=== PATIENT | female | born 1980 | race American Indian/Alaskan Native ===

== ENCOUNTER 2019-07-08 05:25 | Observation (INO) | payer MEDICAID ==
[2019-07-08] MEDS ORDERED: ADRENALINE P/F SUB-Q ONE ×3 (05:47→07:49)
[2019-07-08] MEDS ORDERED: BENADRYL IV ONE (05:47)
[2019-07-08] MEDS ORDERED: PEPCID IV ONE (05:47)
[2019-07-08] MEDS ORDERED: SOLU-Medrol IV ONE (05:47)
[2019-07-08] MEDS ORDERED: LIDOCAINE VISCOUS 2% MM STA (06:36)
--- NOTE | 2019-07-08 06:37 | Emergency Department Report ---
ED General Adult HPI - General Chief complaint: Allergic Reaction Stated complaint: TONGUE SWOLLEN Time Seen by Provider: 07/08/19 05:59 Source: patient, EMS (EMS documentation not available at the time of chart dictation), RN notes reviewed, old records reviewed Mode of arrival: Ambulatory Limitations: No Limitations - History of Present Illness Initial comments: Primary care Dr.: Dr. Aguilera Past medical history: Chronic back pain, supposed to have back surgery next month, reports NSAID allergy The patient states that she is not . The patient states her orthopedist currently has her on celecoxib and meloxicam for her chronic musculoskeletal back pain. She is on these medications for the past month. The patient presents to the ER today with complaint of nontraumatic painless tongue swelling. This has been present for a few hours. The patient has not started any new or different medications. She also endorses cough. She denies vomiting. She denies additional complaints. Symptoms constant, and do not have exacerbating or relieving factors. -: Gradual Severity scale (0 -10): 10 Consistency: constant Improves with: none Worsens with: none Associated Symptoms: denies other symptoms, cough - Related Data Previous Rx's Medication Instructions Recorded Last Taken Type Acetaminophen/Codeine 1 tab PO Q6H PRN #30 tab 09/11/14 11/25/14 Rx [Acetaminophen-Codeine #3 TAB] Amoxicillin [Trimox CAP] 500 mg PO Q8H #20 capsule 11/26/14 Unknown Rx Loratadine [Claritin] 10 mg PO DAILY #20 tablet 11/26/14 Unknown Rx Pseudoephedrine [Sudafed] 30 mg PO TID #20 tablet 11/26/14 Unknown Rx Sodium Chloride/Sodium Bicarb 75 ml NS TID #1 spray 11/26/14 Unknown Rx [Nasa Mist Sal[place]] predniSONE [Deltasone] 20 mg PO BID #8 tablet 11/26/14 Unknown Rx oxyCODONE /ACETAMINOPHEN [Percocet 1 tab PO Q6HR PRN #10 tablet 01/02/15 Unknown Rx 5/325 mg] Meloxicam 7.5 mg PO QAM #7 tablet 09/12/17 Unknown Rx EPINEPHrine [Epipen 2-Joe] 0.3 mg IM ONCE PRN #0.6 ml 03/28/19 Unknown Rx Famotidine [Pepcid] 20 mg PO BID #6 tablet 03/28/19 Unknown Rx Prednisone [predniSONE 10 mg 10 mg PO .TAPER #1 tab.ds.pk 03/28/19 Unknown Rx (6-Day Pack, 21 Tabs)] diphenhydrAMINE [Benadryl CAP] 50 mg PO Q6HR #24 capsule 03/28/19 Unknown Rx Allergies Allergy/AdvReac Type Severity Reaction Status Date / Time ibuprofen [From Motrin] Allergy Unknown Verified 07/08/19 05:30 Sulfa (Sulfonamide Allergy Hives Verified 09/11/14 13:24 Antibiotics) tramadol Allergy Itching Verified 11/26/14 12:55 ED Review of Systems ROS: Stated complaint: TONGUE SWOLLEN Other details as noted in HPI Comment: All other systems reviewed and negative ENT: other (tongue swelling) Respiratory: cough ED Past Medical Hx - Past Medical History Previous Medical History?: Yes Hx Asthma: Yes Additional medical history: Recurrent sinusitis, Allergies - Surgical History Past Surgical History?: No - Social History Smoking Status: Current Every Day Smoker Substance Use Type: None - Medications Home Medications: Home Medications Medication Instructions Recorded Confirmed Last Taken Type Acetaminophen/Codeine 1 tab PO Q6H PRN #30 tab 09/11/14 11/26/14 11/25/14 Rx [Acetaminophen-Codeine #3 TAB] Amoxicillin [Trimox CAP] 500 mg PO Q8H #20 capsule 11/26/14 Unknown Rx Loratadine [Claritin] 10 mg PO DAILY #20 tablet 11/26/14 Unknown Rx Pseudoephedrine [Sudafed] 30 mg PO TID #20 tablet 11/26/14 Unknown Rx Sodium Chloride/Sodium Bicarb 75 ml NS TID #1 spray 11/26/14 Unknown Rx [N[place] Mist Sal[place]] predniSONE [Deltasone] 20 mg PO BID #8 tablet 11/26/14 Unknown Rx oxyCODONE /ACETAMINOPHEN [Percocet 1 tab PO Q6HR PRN #10 tablet 01/02/15 Unknown Rx 5/325 mg] Meloxicam 7.5 mg PO QAM #7 tablet 09/12/17 Unknown Rx EPINEPHrine [Epipen 2-Joe] 0.3 mg IM ONCE PRN #0.6 ml 03/28/19 Unknown Rx Famotidine [Pepcid] 20 mg PO BID #6 tablet 03/28/19 Unknown Rx Prednisone [predniSONE 10 mg 10 mg PO .TAPER #1 tab.ds.pk 03/28/19 Unknown Rx (6-Day Pack, 21 Tabs)] diphenhydrAMINE [Benadryl CAP] 50 mg PO Q6HR #24 capsule 03/28/19 Unknown Rx ED Physical Exam - General Limitations: No Limitations General appearance: alert, in no apparent distress - Head Head exam: Present: atraumatic, normocephalic - Eye Eye exam: Present: normal appearance, EOMI. Absent: nystagmus - ENT ENT exam: Present: normal exam, mucous membranes moist, normal external ear e xam, other (tongue swelling is noted. There is no stridor. There is no dysphonia. Patient speaking in full sentences.). Absent: normal orophraynx - Neck Neck exam: Present: normal inspection, full ROM. Absent: tenderness, meningismus - Respiratory Respiratory exam: Present: normal lung sounds bilaterally. Absent: respiratory distress - Cardiovascular Cardiovascular Exam: Present: regular rate, normal rhythm, normal heart sounds. Absent: bradycardia, tachycardia, irregular rhythm, systolic murmur, diastolic murmur, rubs, gallop - GI/Abdominal GI/Abdominal exam: Present: soft. Absent: distended, tenderness, guarding, rebound, rigid, pulsatile mass - Extremities Exam Extremities exam: Present: normal inspection, full ROM, other (2+ pulses noted in the bilateral upper, lower extremities. There is no long bony tenderness. The pelvis is stable. Muscular compartments are soft.). Absent: pedal edema, joint swelling, calf tenderness - Back Exam Back exam: Present: normal inspection, full ROM. Absent: tenderness, CVA tenderness (R), CVA tenderness (L), paraspinal tenderness, vertebral tenderness - Neurological Exam Neurological exam: Present: alert, other (there is no facial droop. The tongue is midline. The extraocular movements are intact bilaterally. 5/ 5 strength bilateral upper, lower extremities. Sensation intact to light touch bilateral upper, lower extremities bilaterally. Sensation is intact to light touch in the bilateral V1, V2, V3 distribution.) - Psychiatric Psychiatric exam: Present: normal affect, normal mood - Skin Skin exam: Present: warm, dry, intact, normal color. Absent: rash ED Course Vital Signs 07/08/19 07/08/19 07/08/19 05:29 05:31 05:59 Temperature 98.7 F 98.7 F Pulse Rate 96 H 95 H Pulse Rate [ Anterior Bilateral Throughout] Pulse Rate [ Posterior Bilateral Throughout] Respiratory 18 18 18 Rate Respiratory Rate [Anterior Bilateral Throughout] Respiratory Rate [Posterior Bilateral Throughout] Blood Pressure 141/89 Blood Pressure 141/89 [Right] O2 Sat by Pulse 100 97 97 Oximetry 07/08/19 07/08/19 07/08/19 06:05 07:42 08:58 Temperature 98.7 F Pulse Rate 95 H 84 Pulse Rate [ 93 H Anterior Bilateral Throughout] Pulse Rate [ 127 H Posterior Bilateral Throughout] Respiratory 18 18 Rate Respiratory 20 Rate [Anterior Bilateral Throughout] Respiratory 20 Rate [Posterior Bilateral Throughout] Blood Pressure 141/89 Blood Pressure 120/66 [Right] O2 Sat by Pulse 97 94 Oximetry 07/08/19 09:01 Temperature Pulse Rate 123 H Pulse Rate [ Anterior Bilateral Throughout] Pulse Rate [ Posterior Bilateral Throughout] Respiratory 18 Rate Respiratory Rate [Anterior Bilateral Throughout] Respiratory Rate [Posterior Bilateral Throughout] Blood Pressure Blood Pressure 143/69 [Right] O2 Sat by Pulse 100 Oximetry - Reevaluation(s) Reevaluation #1: 07/08/19 07:16 Differential diagnosis, including not limited to: Angioedema Assessment and plan: 39-year-old female, with documented history of NSAID- related allergic reaction, currently on multiple NSAIDs, now with tongue swelling, no stridor, protecting her airway, likely medication-related angioedema. The patient is afebrile with reassuring vital signs. She is speaking in full sentences. We will treat her with standard angioedema medications, placed her on a cardiac cath lab radiology technologist, and observed. X-ray of the chest is unremarkable. Reevaluation #2: 07/08/19 08:18 Tongue swelling appears minimally improved. Patient now somewhat hypoxic, saturating at 90, 91% on room air, requiring supplemental oxygen. She continues to speak in full sentences. Additional albuterol, subcutaneous epinephrine ordered. We will admit the patient to the hospital for airway observation. Hospital physician is paged to arrange admission. Doubt acute electrolyte de rangement, but screening laboratory studies have been ordered. Reevaluation #3: 07/08/19 08:26 Saturating around 95% on an inhaler with albuterol. Still continues to speak in full sentences. Discussed plan of care for admission for airway observation, the patient is amenable to this plan of care. The Hospital physician, Dr. Hernández will be admitting the patient ED Medical Decision Making - Lab Data Result diagrams: 07/08/19 08:22 07/08/19 08:22 Vital Signs 07/08/19 07/08/19 07/08/19 05:29 05:31 05:59 Temperature 98.7 F 98.7 F Pulse Rate 96 H 95 H Pulse Rate [ Anterior Bilateral Throughout] Pulse Rate [ Posterior Bilateral Throughout] Respiratory 18 18 18 Rate Respiratory Rate [Anterior Bilateral Throughout] Respiratory Rate [Posterior Bilateral Throughout] Blood Pressure 141/89 Blood Pressure 141/89 [Right] O2 Sat by Pulse 100 97 97 Oximetry 07/08/19 07/08/19 07/08/19 06:05 07:42 08:58 Temperature 98.7 F Pulse Rate 95 H 84 Pulse Rate [ 93 H Anterior Bilateral Throughout] Pulse Rate [ 127 H Posterior Bilateral Throughout] Respiratory 18 18 Rate Respiratory 20 Rate [Anterior Bilateral Throughout] Respiratory 20 Rate [Posterior Bilateral Throughout] Blood Pressure 141/89 Blood Pressure 120/66 [Right] O2 Sat by Pulse 97 94 Oximetry 07/08/19 09:01 Temperature Pulse Rate 123 H Pulse Rate [ Anterior Bilateral Throughout] Pulse Rate [ Posterior Bilateral Throughout] Respiratory 18 Rate Respiratory Rate [Anterior Bilateral Throughout] Respiratory Rate [Posterior Bilateral Throughout] Blood Pressure Blood Pressure 143/69 [Right] O2 Sat by Pulse 100 Oximetry Lab Results 07/08/19 07/08/19 07/08/19 Range/Units 08:22 08:22 08:22 WBC 13.1 H (4.5-11.0) K/mm3 RBC 4.42 (3.65-5.03) M/mm3 Hgb 13.5 (10.1-14.3) gm/dl Hct 39.8 (30.3-42.9) % MCV 90 (79-97) fl MCH 31 (28-32) pg MCHC 34 (30-34) % RDW 13.8 (13.2-15.2) % Plt Count 226 (140-440) K/mm3 Seg Neutrophils % Round Cutter Operator PT 13.3 (12.2-14.9) Sec. INR 1.04 (0.87-1.13) APTT 26.2 (24.2-36.6) Sec. Sodium 138 (137-145) mmol/L Potassium 3.7 (3.6-5.0) mmol/L Chloride 103.1 (98-107) mmol/L Carbon Dioxide 20 L (22-30) mmol/L Anion Gap 19 mmol/L BUN 12 (7-17) mg/dL Creatinine 0.8 (0.7-1.2) mg/dL Estimated GFR > 60 ml/min BUN/Creatinine Ratio 15 % Glucose 141 H (65-100) mg/dL Calcium 9.2 (8.4-10.2) mg/dL Magnesium 1.70 (1.7-2.3) mg/dL HCG, Quant (0-4) mIU/mL 07/08/19 Range/Units 08:22 WBC (4.5-11.0) K/mm3 RBC (3.65-5.03) M/mm3 Hgb (10.1-14.3) gm/dl Hct (30.3-42.9) % MCV (79-97) fl MCH (28-32) pg MCHC (30-34) % RDW (13.2-15.2) % Plt Count (140-440) K/mm3 Seg Neutrophils % PT (12.2-14.9) Sec. INR (0.87-1.13) APTT (24.2-36.6) Sec. Sodium (137-145) mmol/L Potassium (3.6-5.0) mmol/L Chloride (98-107) mmol/L Carbon Dioxide (22-30) mmol/L Anion Gap mmol/L BUN (7-17) mg/dL Creatinine (0.7-1.2) mg/dL Estimated GFR ml/min BUN/Creatinine Ratio % Glucose (65-100) mg/dL Calcium (8.4-10.2) mg/dL Magnesium (1.7-2.3) mg/dL HCG, Quant < 2 (0-4) mIU/mL Critical care attestation.: If time is entered above; I have spent that time in minutes in the direct care of this critically ill patient, excluding procedure time. ED Disposition Clinical Impression: Angioedema, Hypoxia Disposition: OP ADMIT IP TO THIS HOSP Is pt being admited?: Yes Condition: Good
--- NOTE | 2019-07-08 07:05 | XRay Report ---
CHEST 2 VIEWS INDICATION: cough congestion. COMPARISON: None. FINDINGS: Support devices: None. Heart: Within normal limits. Lungs/Pleura: No acute air space or interstitial disease. No significant pleural effusion. IMPRESSION: No acute findings. Signer Name: Marcus Vizcarra MD Signed: 07/08/2019 7:00 AM Workstation Name: [id number]
[2019-07-08] MEDS ORDERED: PROVENTIL IH ONE (07:49)
--- NOTE | 2019-07-08 08:49 | History and Physical Report ---
History of Present Illness Date of examination: 07/08/19 Date of admission: 07/08/19 Chief complaint: Allergic reaction History of present illness: Patient is a 39-year-old female patient of Dr. Aguilera with history of chronic back pain is suspected to have back surgery next month and would reported NSAID allergy. Patient has had multiple bouts of allergy problems in the past but none resulted in intubation. She previously had EpiPen but no longer. She according to her story has had allergy testing as a child but does not remember everything she's allergic to. She presents to the hospital with complaints of shortness of breath and nontraumatic painless tongue swelling that has been ongoing for about a few hours she has had a cough but nonproductive she denied any vomiting nausea or diarrhea or fever. She remembers taking some NSAIDs in the last day. She also reports that she recently had an orthopedic evaluation in which they placed on celecoxib and meloxicam. In the ED she did have a pronounced swelling with Lisps's speech when she was talking. She did begin to show some improvement with steroid eye was given in the ED and was asked to admit her for further management. - Past Medical History Previous Medical History?: Yes Hx Asthma: Yes Additional medical history: Recurrent sinusitis, Allergies - Surgical History Past Surgical History?: No - Social History Smoking Status: Current Every Day Smoker Substance Use Type: None Past History Past Medical History: other (chronic back pain) Past Surgical History: No surgical history Social history: smoking Family history: no significant family history Medications and Allergies Allergies Allergy/AdvReac Type Severity Reaction Status Date / Time ibuprofen [From Motrin] Allergy Unknown Verified 07/08/19 05:30 Sulfa (Sulfonamide Allergy Hives Verified 09/11/14 13:24 Antibiotics) tramadol Allergy Itching Verified 11/26/14 12:55 Home Medications Medication Instructions Recorded Confirmed Last Taken Type Meloxicam 7.5 mg PO QAM #7 tablet 09/12/17 07/08/19 06/27/19 Rx Review of Systems All systems: negative Constitutional: no weight gain, no fever, no chills, no sweats, no night sweats Cardiovascular: shortness of breath, no chest pain, no orthopnea, no palpitations, no edema, no syncope Respiratory: cough, shortness of breath, no cough with sputum, no excessive sp utum, no dyspnea on exertion Gastrointestinal: no abdominal pain, no vomiting, no constipation, no change in bowel habits, no heartburn Musculoskeletal: low back pain (chronic) Integumentary: no rash, no redness, no wounds, no boils, no bullae, no unusual bruising, no hirsutism Neurological: no paralysis, no numbness, no tingling, no syncope, no headaches, no convulsions, no change in speech, no changes in smell/taste, no motor disturbance, no sensory deficit, no loss of vision Psychiatric: no memory loss, no insomnia, no change in libido, no suicidal ideation, no disorientation, no depression, no anhedonia, no anxiety attacks Exam - Physical Exam Narrative exam: VITAL SIGNS: Reviewed. GENERAL: The patient appears normally developed, Vital signs as documented. HEAD: No signs of head trauma. EYES: Pupils are equal. Extraocular motions intact. EARS: Hearing grossly intact. MOUTH: Oropharynx is normal. oral pearcing, large tongue. NECK: No adenopathy, no JVD. CHEST: Chest with clear breath sounds bilaterally. No wheezes, rales, or rhonchi. CARDIAC: Regular rate and rhythm. S1 and S2, without murmurs, gallops, or rubs. VASCULAR: No Edema. Peripheral pulses normal and equal in all extremities. ABDOMEN: Soft, non tender and non distended. No rebound or guarding, and no masses palpated. Bowel Sounds normal. MUSCULOSKELETAL: Good range of motion of all major joints. Extremities without clubbing, cyanosis or edema. NEUROLOGIC EXAM: Alert and oriented x 3 No focal sensory or strength deficits. Speech abnormal. Follows commands. PSYCHIATRIC: Mood normal. SKIN: detial exam as documented in skin assessment - Constitutional Vitals: Temp Pulse Resp BP Pulse Ox 98.7 F 84 18 120/66 94 07/08/19 06:05 07/08/19 07:42 07/08/19 07:42 07/08/19 07:42 07/08/19 07:42 Results - Labs CBC & Chem 7: 07/08/19 08:22 07/08/19 08:22 Assessment and Plan Assessment and plan: Patient is a 39-year-old female patient of Dr. Aguilera with history of chronic back pain is suspected to have back surgery next month and would reported NSAID allergy. Patient has had multiple bouts of allergy problems in the past but none resulted in intubation. She previously had EpiPen but no longer. She according to her story has had allergy testing as a child but does not remember everything she's allergic to. She presents to the hospital with complaints of shortness of breath and nontraumatic painless tongue swelling that has been ongoing for about a few hours she has had a cough but nonproductive she denied any vomiting nausea or diarrhea or fever. She remembers taking some NSAIDs in the last day. She also reports that she recently had an orthopedic evaluation in which they placed on celecoxib and meloxicam. In the ED she did have a pronounced swelling with Lisps's speech when she was talking. She did begin to show some improvement with steroid eye was given in the ED and was asked to admit her for further management. ANGIOEDEMA Acute Respiratory failure with sensation of impending doom secondary to above Anxiety disorder Tobacco use disorder Chronic back pain Allergic reaction to NSAID PLAN Admit to Telemetry Start on allergy cocktail, steroids, H2 opal Nebs, scheduled and PRN O2 Continuous monitoring Advised about allergies and also need to see an teaching associate outpatient 20 mins counselling on tobacco cessation DVT/GI prophy Anticipate discharge in am Advance Directives: Yes Plan of care discussed with patient/family: Yes
[2019-07-08 08:55] LABS: Hematocrit 39.8 % (30.3-42.9); Hemoglobin 13.5 gm/dl (10.1-14.3); Mean Corpuscular HGB Conc 34 % (30-34); Mean Corpuscular Volume 90 fl (79-97); Platelet Count 226 K/mm3 (140-440); Red Blood Count 4.42 M/mm3 (3.65-5.03); Red Cell Distribution Width 13.8 % (13.2-15.2)
[2019-07-08 08:56] LABS: BUN/Creatinine Ratio 15; Blood Urea Nitrogen 12 mg/dL (7-17); Calcium 9.2 mg/dL (8.4-10.2); Hemolysis Index 9
[2019-07-08] MEDS ORDERED: SODIUM CHLORIDE FLUSH SYRINGE 10 ML IV PRN (09:14)
[2019-07-08] MEDS ORDERED: PROVENTIL IH PRN (09:14)
[2019-07-08] MEDS ORDERED: ZOFRAN IV PRN (09:14)
[2019-07-08] MEDS ORDERED: BENADRYL PO PRN (09:16)
[2019-07-08 10:07] LABS: INR 1.04 (0.87-1.13)
[2019-07-08] MEDS: PEPCID IV SCH ×2 (10:07→21:36)
[2019-07-08] MEDS: SODIUM CHLORIDE FLUSH SYRINGE 10 ML IV SCH ×2 (10:07→21:37)
[2019-07-08 10:08] LABS: Partial Thromboplastin Time 26.2 Sec. (24.2-36.6)
[2019-07-08 11:10] LABS: Band Neutrophils # (Manual) 0.1 K/mm3; Basophils % (Manual) 0 % (0.0-1.8); Eosinophils % (Manual) 0 % (0.0-4.3); Monocytes % (Manual) 0 % (0.0-7.3); Total Cells Counted 100
[2019-07-08 11:11] LABS: Platelet Estimate Consistent w Auto; RBC Morphology Normal
[2019-07-08] MEDS ORDERED: NACL 0.9% 1000 ML 0 ML ONE (11:25)
[2019-07-08] MEDS ORDERED: D5NS 1,000 ML IV ONE (11:33)
[2019-07-08] MEDS: D5NS 1,000 ML IV SCH (11:36)
[2019-07-08] MEDS: TYLENOL PO PRN ×2 (13:52→21:36)
[2019-07-08] MEDS: SOLU-Medrol IV SCH ×2 (13:52→21:36)
[2019-07-08] MEDS: DUONEB *Not for PRN Use IH SCH ×2 (16:41→20:45)
[2019-07-09] MEDS: D5NS 1,000 ML IV SCH (00:16)
[2019-07-09] MEDS: SOLU-Medrol IV SCH (06:51)
[2019-07-09 07:32] VITALS: BP 135/86
[2019-07-09] MEDS ORDERED: DUONEB *Not for PRN Use IH SCH (08:00)
--- NOTE | 2019-07-09 09:58 | Discharge Summary ---
Providers - Providers Date of Admission: 07/08/19 08:27 Date of discharge: 07/09/19 Attending physician: RENEE URBANO Primary care physician: GAME TRAPPER Hospitalization Condition: Good Hospital course: Patient is a 39 yo woman with a history of tobacco dependency, asthma, allergic rhinitis and chronic back pains who presented to [facility] ED with SOB, tongue swelling and difficult swallowing. She was diagnosis with Angioedema and treated with IV Epinephrine and IV steroids. Her symptoms resolved and she is asking for more of an advance diet. Discharge Diagnoses: Angioedema Tobacco dependency: counseling to stop done Obesity, BMI 39: counseling done Asthma without exacerbation Disposition: DC-01 TO HOME OR SELFCARE Time spent for discharge: 31 minutes Core Measure Documentation - Palliative Care Palliative Care/ Comfort Measures: Not Applicable - Core Measures Any of the following diagnoses?: none - VTE Discharge Requirements Deep Vein Thrombosis/Pulmonary Embolism Present on Admission: No Has pt received <5 days of overlap therapy or INR<2.0: No Anticoagulant overlap therapy prescribed at discharge: No Contraindication No Overlap Therapy order at DC: Not Indicated Exam - Physical Exam Narrative exam: Gen: WDWN, NAD, Awake, Alert, Orientated HEENT: NCAT, EOMI, PERRL, OP Clear Neck: supple, no adenopathy, no thyromegaly, no JVD CVS/Heart: RRR, normal S1S2, pulses present bilaterally Chest/Lungs: CTA B, Symmetrical chest expansion, good air entry bilaterally GI/Abdomen: soft, NTND, good bowel sounds, no guarding or rebound /Bladder: no suprapubic tenderness, no CVA or paraspinal tenderness Extermity/Skin: no c/c/e, no obvious rash MSK: FROM x 4 Neuro: CN 2-12 grossly intact, no new focal deficits Psych: calm - Constitutional Vitals: Temp Pulse Resp BP Pulse Ox 98.0 F 96 H 18 135/86 96 07/09/19 07:27 07/09/19 08:37 07/09/19 08:37 07/09/19 07:27 07/09/19 08:40 Plan Activity: other (no strenous activity unless cleared by PCP) Diet: regular Special Instructions: smoking cessation Follow up with: EUSEBIO SUTHERLAND MD [Primary Care Provider] - 3-5 Days DAKOTA AMIN MD [Staff Physician] - 7 Days Prescriptions: Loratadine [Claritin] 10 mg PO DAILY #30 tablet methylPREDNISolone [Medrol 4MG DOSEPAK (21 tabs)] 1 dose PO DAILY #1 tab.ds.pk
[2019-07-09] MEDS: PEPCID IV SCH (10:37)
== END 2019-07-09 14:23 | disposition home or self-care (01) ==
LOC: ED 05:25 → IMCU 08:27 → 4A 09:40
PROVIDERS: ADMIT Internal Medicine; ATTEND Internal Medicine
DX: T78.3XXA Angioneurotic edema, initial encounter (principal); J96.00 Acute respiratory failure, unspecified whether with hypoxia or hypercapnia; F41.9 Anxiety disorder, unspecified; J45.909 Unspecified asthma, uncomplicated; M54.5 Low back pain; F17.200 Nicotine dependence, unspecified, uncomplicated; E66.9 Obesity, unspecified; Z68.39 Body mass index [BMI] 39.0-39.9, adult
CPT/HCPCS: 36415; 71046; 80048; 83735; 84702; 85007; 85025; 85610; 85730; 94640; 94644; 94760; 96372; 96374; 96375; 96376; 99284; 99406; G0378; J0171; J1200; J2405; J2930; J7042; J7030

== ENCOUNTER 2020-07-20 21:16 | Emergency (ER) | payer BC, MEDICAID ==
[2020-07-20] MEDS ORDERED: MORPHINE 4 MG/1 ML INJ IV ONE (23:44)
[2020-07-20] MEDS ORDERED: ONDANSETRON 4 MG/2 ML INJ IV ONE (23:46)
[2020-07-21 00:19] LABS: Basophils % (Auto) 0.1 % (0.0-1.8); Hematocrit 39.6 % (30.3-42.9); Hemoglobin 13.3 gm/dl (10.1-14.3); Lymphocytes # (Auto) 1.8 K/mm3 (1.2-5.4); Lymphocytes % (Auto) 25.4 % (13.4-35.0); Mean Corpuscular HGB Conc 34 % (30-34); Mean Corpuscular Volume 92 fl (79-97); Monocytes # (Auto) 0.5 K/mm3 (0.0-0.8); Monocytes % (Auto) 7.4 % (0.0-7.3); Platelet Count 267 K/mm3 (140-440); Red Blood Count 4.32 M/mm3 (3.65-5.03); Red Cell Distribution Width 14.4 % (13.2-15.2)
[2020-07-21 00:42] LABS: Alanine Aminotransferase 21 units/L (7-56); Albumin 4.1 g/dL (3.9-5); BUN/Creatinine Ratio 12; Blood Urea Nitrogen 13 mg/dL (7-17); Calcium 9.4 mg/dL (8.4-10.2); Hemolysis Index 47
--- NOTE | 2020-07-21 03:32 | Emergency Department Report ---
Abscess Boil HPI - HPI Chief Complaint: Skin/Abscess/Foreign Body Stated Complaint: LT SIDE KNOT BREAST PAIN Duration: 1 Week Location: Other (left breast nipple) Severity: Severe History: Yes Pain, No Fever, No Purulent Drainage, No Numbness, No Foreign Body, No Previous History, No Insect Bite HPI: Patient is a 40-year-old -Thai female with past medical history of asthma who presents to the ED with complaint of acute onset persistent severe painful swollen erythematous maculopapular rash on left breast at the nipple for the last 1 week, worse in the last 2 days. Patient states that she has been taking [id number] pain medication with no relief. Patient states that the pain and the swelling got worse in the last 24 hours. Patient denies fever, chills, cough, nausea, vomiting, chest pain, shortness of breath, traumatic injury, headache or dizziness. Home Medications: Previous Rx's Medication Instructions Recorded Last Taken Type Acetaminophen [Acetaminophen TAB] 2 tab PO Q4H PRN #14 tablet 07/09/19 Unknown Rx Loratadine (Nf) [Claritin] 10 mg PO DAILY #30 tablet 07/09/19 Unknown Rx diphenhydrAMINE [Benadryl CAP] 50 mg PO Q6H PRN #15 capsule 07/09/19 Unknown Rx methylPREDNISolone [Medrol 4MG 1 dose PO DAILY #1 tab.ds.pk 07/09/19 Unknown Rx DOSEPAK (21 tabs)] Clindamycin [Clindamycin CAP] 300 mg PO Q8HR #60 capsule 07/21/20 Unknown Rx Ibuprofen [Motrin 800 MG tab] 800 mg PO Q8HR PRN #30 tablet 07/21/20 Unknown Rx Ondansetron [Zofran Odt] 4 mg PO Q6H PRN #15 tab.rapdis 07/21/20 Unknown Rx cephALEXin [Keflex] 500 mg PO Q8HR #30 cap 07/21/20 Unknown Rx traMADoL [Ultram] 50 mg PO Q6HR PRN #12 tablet 07/21/20 Unknown Rx Allergies/Adverse Reactions: Allergies Allergy/AdvReac Type Severity Reaction Status Date / Time ibuprofen [From Motrin] Allergy Unknown Verified 07/08/19 05:30 Sulfa (Sulfonamide Allergy Hives Verified 09/11/14 13:24 Antibiotics) tramadol Allergy Itching Verified 11/26/14 12:55 ED Review of Systems ROS: Stated complaint: LT SIDE KNOT BREAST PAIN Other details as noted in HPI Constitutional: denies: chills, fever Eyes: denies: eye pain, eye discharge, vision change ENT: denies: ear pain, throat pain Respiratory: denies: cough, shortness of breath, wheezing Cardiovascular: chest pain (Left breast pain due to erythematous maculopapular rash). denies: palpitations Endocrine: no symptoms reported Gastrointestinal: denies: abdominal pain, nausea, diarrhea Genitourinary: denies: urgency, dysuria, discharge Musculoskeletal: denies: back pain, joint swelling, arthralgia Skin: rash (Swollen, painful, erythematous maculopapular rash on left breast nipple). denies: lesions Neurological: denies: headache, weakness, paresthesias Psychiatric: denies: anxiety, depression Hematological/Lymphatic: denies: easy bleeding, easy bruising ED Past Medical Hx - Past Medical History Previous Medical History?: Yes Hx Asthma: Yes Additional medical history: Recurrent sinusitis, Allergies - Surgical History Past Surgical History?: Yes Additional Surgical History: back - Social History Smoking Status: Current Every Day Smoker Substance Use Type: None - Medications Home Medications: Home Medications Medication Instructions Recorded Confirmed Last Taken Type Acetaminophen [Acetaminophen TAB] 2 tab PO Q4H PRN #14 tablet 07/09/19 Unknown Rx Loratadine (Nf) [Claritin] 10 mg PO DAILY #30 tablet 07/09/19 Unknown Rx diphenhydrAMINE [Benadryl CAP] 50 mg PO Q6H PRN #15 capsule 07/09/19 Unknown Rx methylPREDNISolone [Medrol 4MG 1 dose PO DAILY #1 tab.ds.pk 07/09/19 Unknown Rx DOSEPAK (21 tabs)] Clindamycin [Clindamycin CAP] 300 mg PO Q8HR #60 capsule 07/21/20 Unknown Rx Ibuprofen [Motrin 800 MG tab] 800 mg PO Q8HR PRN #30 tablet 07/21/20 Unknown Rx Ondansetron [Zofran Odt] 4 mg PO Q6H PRN #15 tab.rapdis 07/21/20 Unknown Rx cephALEXin [Keflex] 500 mg PO Q8HR #30 cap 07/21/20 Unknown Rx traMADoL [Ultram] 50 mg PO Q6HR PRN #12 tablet 07/21/20 Unknown Rx ED Abscess Boil Physical Exam - Exam General: Vital signs noted. No distress. Alert and acting appropriately. Front/Back of Body, Lg (Color): 1 - Swollen, erythematous maculopapular tender rash with fluctuance on the left breast nipple Size: 2 cm Exam: Yes Tenderness, Yes Fluctuance, Yes Surrounding Cellulites/Erythema, Yes Normal Neurologic Exam, Yes Normal Circulation, No Lymphangitis, No Crepitation, No Heart Murmur I & D Note - I & D Note I & D Note: Left nipple rash was cleaned thoroughly and local anesthetic lidocaine 1% solution injected for a total of 3 cc. Once the anesthesia was fully achieved, the need for was incised with an 18-gauge needle and the contents of the abscess aspirated into the syringe. A total of 5 cc of thick purulent discharge was aspirated. The wound was then cleaned thoroughly with normal saline and completely debrided. The wound was then dressed with 4 x 4 gauze and Tegaderm. Patient was discharged home on oral antibiotics and advised to follow-up with her primary care physician in 5 to 7 days for reevaluation or return to the ED immediately if symptoms get worse. Critical care attestation.: If time is entered above; I have spent that time in minutes in the direct care of this critically ill patient, excluding procedure time. ED Medical Decision Making - Lab Data Result diagrams: 07/20/20 23:53 07/20/20 23:53 - Medical Decision Making This is a 40-year-old -Thai female with past medical history of asthma who presents to the ED with complaint of acute onset persistent severe painful swollen erythematous maculopapular rash on left breast at the nipple for the last 1 week, worse in the last 2 days. Patient states that she has been taking [id number] pain medication with no relief. Patient states that the pain and the swelling got worse in the last 24 hours. In the ED, patient is alert and oriented x3 and is not in distress. Patient was treated for pain in the ED and also given initial oral antibiotics in the ED. On reevaluation, patient's pain is well controlled medications. Lab test results were reviewed and are all nonactionable except for mild hypokalemia of 3.4 mmol/L. The left breast nipple rash was cleaned and the content of the abscess aspirated with an 18-gauge needle into a syringe after application of local anesthesia lidocaine 1% solution. A total of 5 cc of thick purulent discharge was aspirated from the left nipple abscess. Patient tolerated the procedure well. The wound was then dressed appropriately and the patient was discharged home on pain medications and oral antibiotics and advised to follow-up with her primary care physician in 5 to 7 days for reevaluation or return to the ED immediately if symptoms get worse. - Differential Diagnosis Cellulitis, abscess, mastitis, folliculitis ED Disposition Clinical Impression: Cellulitis of left breast, Abscess of skin of breast, Acute mastitis of left breast Disposition: - TO HOME OR SELFCARE Is pt being admited?: No Does the pt Need Aspirin: No Condition: Stable Instructions: Abscess (ED), Cellulitis (ED), Mastitis (ED) Additional Instructions: All lab test results are unremarkable, therefore take medications with food, drink plenty of fluids and follow-up with your primary care physician in 5 to 7 days for reevaluation. Return to the ED immediately if symptoms get worse. Prescriptions: Clindamycin [Clindamycin CAP] 300 mg PO Q8HR #60 capsule cephALEXin [Keflex] 500 mg PO Q8HR #30 cap Ibuprofen [Motrin 800 MG tab] 800 mg PO Q8HR PRN #30 tablet PRN Reason: Pain , Severe (7-10) traMADoL [Ultram] 50 mg PO Q6HR PRN #12 tablet PRN Reason: Pain Ondansetron [Zofran Odt] 4 mg PO Q6H PRN #15 tab.rapdis PRN Reason: Nausea Referrals: [facility] [Provider Group] - 7-10 days Forms: Work/School Release Form(ED) Time of Disposition: 03:36 Print Language: EQUATORIAL GUINEAN
[2020-07-21 05:18] VITALS: BP 122/83
--- NOTE | 2020-07-21 08:52 | Ultrasound Report ---
EXAMINATION: Left Limited Breast Ultrasound, 07/20/2020 INDICATION: Evaluate for left breast abscess. COMPARISON: No relevant prior studies are available for comparison. FINDINGS: Targeted ultrasound evaluation was performed of the area of interest. Sonographic evaluati on of the left retroareolar region in the patient's area of clinical concern demonstrates a hypoechoi c oval masslike area measuring 1.2 x 1.1 cm. It is difficult to determine if this represents a thick fluid collection or solid mass. There is mild peripheral increased vascularity.. IMPRESSION: Follow up recommendation: Surgical consult BI-RADS Category 4: Suspicious for Malignancy. Hypoechoic region within the left retroareolar breast which is favored to represent a thick fluid collection, although it would be difficult to exclude a s olid mass. Diagnostic considerations would include breast abscess versus solid mass. Please correlate with patient's clinical presentation. Surgical consultation is recommended for additional evaluation . Bilateral diagnostic mammogram may also be helpful depending on patient's clinical circumstances. A normal or "negative" report should not preclude biopsy or follow-up of a clinically suspicious find ing. Signer Name: Georgie Ojeda MD Signed: 07/21/2020 8:47 AM Workstation Name: [id number]
== END 2020-07-21 03:49 | disposition home or self-care (01) ==
LOC: ED 21:16
DX: N61.1 Abscess of the breast and nipple (principal); N61.0 Mastitis without abscess; J45.909 Unspecified asthma, uncomplicated; F17.200 Nicotine dependence, unspecified, uncomplicated; Z79.899 Other long term (current) drug therapy
CPT/HCPCS: 10160; 36415; 76642; 80053; 83690; 84703; 85025; 96365; 96375; 99284; J2270; J2405

== ENCOUNTER 2020-10-27 01:43 | Emergency (ER) | payer SELFPAY ==
[2020-10-27 01:54] VITALS: BP 137/85
[2020-10-27] MEDS ORDERED: AMOXICILLIN/K CLAV 875/125MG TAB PO ONE (01:59)
[2020-10-27] MEDS ORDERED: dexAMETHasone 20 MG/5 ML VIAL IM ONE (01:59)
[2020-10-27] MEDS ORDERED: KETOROLAC 60 MG/2 ML INJ IM ONE (01:59)
[2020-10-27] MEDS ORDERED: LIDOCAINE VISCOUS 2% 15 ML ORAL LIQD PO ONE (02:00)
--- NOTE | 2020-10-27 02:05 | Emergency Department Report ---
ED General Adult HPI - General Chief complaint: Allergic Reaction Stated complaint: SWOLLEN TONGUE Source: patient Mode of arrival: Ambulatory Limitations: No Limitations - History of Present Illness Initial comments: Patient is a 40-year-old -Iranian female with a history of asthma who presents to the ED with complaint of acute onset persistent sore throat with dysphagia, anterior cervical lymph node pain, neck pain and drooling for the last 2 days, worse in the last 12 hours. Patient states that she took Benadryl with no relief. Patient denies dizziness, syncope, fever, chills, shortness of breath, swollen lips, swollen tongue, dysphonia, wheezing, chest tightness, chest pain, abdominal pain, nausea, vomiting, diarrhea, headache or itching or hives. MD Complaint: Sore throat; dysphagia; cervical lymphadenopathy -: Sudden, days(s) (2) Location: mouth, neck Radiation: non-radiation Severity scale (0 -10): 7 Quality: aching, sharp Consistency: constant Improves with: none Worsens with: eating Associated Symptoms: denies other symptoms, loss of appetite. denies: confusion, chest pain, cough, diaphoresis, fever/chills, malaise, nausea/vomiting, rash, seizure, shortness of breath, syncope, weakness Treatments Prior to Arrival: none - Related Data Previous Rx's Medication Instructions Recorded Last Taken Type Acetaminophen [Acetaminophen TAB] 2 tab PO Q4H PRN #14 tablet 07/09/19 Unknown Rx Loratadine (Nf) [Claritin] 10 mg PO DAILY #30 tablet 07/09/19 Unknown Rx diphenhydrAMINE [Benadryl CAP] 50 mg PO Q6H PRN #15 capsule 07/09/19 Unknown Rx methylPREDNISolone [Medrol 4MG 1 dose PO DAILY #1 tab.ds.pk 07/09/19 Unknown Rx DOSEPAK (21 tabs)] Clindamycin [Clindamycin CAP] 300 mg PO Q8HR #60 capsule 07/21/20 Unknown Rx Ibuprofen [Motrin 800 MG tab] 800 mg PO Q8HR PRN #30 tablet 07/21/20 Unknown Rx Ondansetron [Zofran Odt] 4 mg PO Q6H PRN #15 tab.rapdis 07/21/20 Unknown Rx cephALEXin [Keflex] 500 mg PO Q8HR #30 cap 07/21/20 Unknown Rx traMADoL [Ultram] 50 mg PO Q6HR PRN #12 tablet 07/21/20 Unknown Rx Acetaminophen/Codeine [Tylenol 1 tab PO Q6H PRN #12 tab 10/27/20 Unknown Rx /Codeine # 3 tab] Clindamycin [Clindamycin CAP] 300 mg PO Q8HR #60 capsule 10/27/20 Unknown Rx Ketorolac [Toradol] 10 mg PO Q8H PRN #20 tablet 10/27/20 Unknown Rx Lidocaine Viscous 2% 10 ml PO Q6H PRN #120 ml 10/27/20 Unknown Rx diphenhydrAMINE [Benadryl CAP] 25 mg PO Q6HR PRN #30 capsule 10/27/20 Unknown Rx methylPREDNISolone [Medrol 4MG 4 mg PO DAILY #21 tab.ds.pk 10/27/20 Unknown Rx DOSEPAK (21 tabs)] Allergies Allergy/AdvReac Type Severity Reaction Status Date / Time ibuprofen [From Motrin] Allergy Unknown Verified 07/08/19 05:30 Sulfa (Sulfonamide Allergy Hives Verified 09/11/14 13:24 Antibiotics) tramadol Allergy Itching Verified 11/26/14 12:55 ED Review of Systems ROS: Stated complaint: SWOLLEN TONGUE Other details as noted in HPI Constitutional: denies: chills, fever Eyes: denies: eye pain, eye discharge, vision change ENT: throat pain. denies: ear pain Respiratory: denies: cough, shortness of breath, wheezing Cardiovascular: denies: chest pain, palpitations Endocrine: no symptoms reported Gastrointestinal: denies: abdominal pain, nausea, vomiting, diarrhea Genitourinary: denies: urgency, dysuria, discharge Musculoskeletal: arthralgia (neck pain). denies: back pain, joint swelling Skin: denies: rash, lesions Neurological: denies: headache, weakness, paresthesias Psychiatric: denies: anxiety, depression Hematological/Lymphatic: denies: easy bleeding, easy bruising ED Past Medical Hx - Past Medical History Hx Asthma: Yes Additional medical history: Recurrent sinusitis, Allergies - Surgical History Past Surgical History?: Yes Additional Surgical History: back - Social History Smoking Status: Former Smoker Substance Use Type: None - Medications Home Medications: Home Medications Medication Instructions Recorded Confirmed Last Taken Type Acetaminophen [Acetaminophen TAB] 2 tab PO Q4H PRN #14 tablet 07/09/19 Unknown Rx Loratadine (Nf) [Claritin] 10 mg PO DAILY #30 tablet 07/09/19 Unknown Rx diphenhydrAMINE [Benadryl CAP] 50 mg PO Q6H PRN #15 capsule 07/09/19 Unknown Rx methylPREDNISolone [Medrol 4MG 1 dose PO DAILY #1 tab.ds.pk 07/09/19 Unknown Rx DOSEPAK (21 tabs)] Clindamycin [Clindamycin CAP] 300 mg PO Q8HR #60 capsule 07/21/20 Unknown Rx Ibuprofen [Motrin 800 MG tab] 800 mg PO Q8HR PRN #30 tablet 07/21/20 Unknown Rx Ondansetron [Zofran Odt] 4 mg PO Q6H PRN #15 tab.rapdis 07/21/20 Unknown Rx cephALEXin [Keflex] 500 mg PO Q8HR #30 cap 07/21/20 Unknown Rx traMADoL [Ultram] 50 mg PO Q6HR PRN #12 tablet 07/21/20 Unknown Rx Acetaminophen/Codeine [Tylenol 1 tab PO Q6H PRN #12 tab 10/27/20 Unknown Rx /Codeine # 3 tab] Clindamycin [Clindamycin CAP] 300 mg PO Q8HR #60 capsule 10/27/20 Unknown Rx Ketorolac [Toradol] 10 mg PO Q8H PRN #20 tablet 10/27/20 Unknown Rx Lidocaine Viscous 2% 10 ml PO Q6H PRN #120 ml 10/27/20 Unknown Rx diphenhydrAMINE [Benadryl CAP] 25 mg PO Q6HR PRN #30 capsule 10/27/20 Unknown Rx methylPREDNISolone [Medrol 4MG 4 mg PO DAILY #21 tab.ds.pk 10/27/20 Unknown Rx DOSEPAK (21 tabs)] ED Physical Exam - General Limitations: No Limitations General appearance: alert, in no apparent distress - Head Head exam: Present: atraumatic, normocephalic, normal inspection - Eye Eye exam: Present: normal appearance, PERRL, EOMI Pupils: Present: normal accommodation - ENT ENT exam: Present: mucous membranes moist, TM's normal bilaterally, normal external ear exam, other (Mildly erythematous swollen tonsils with drooling) - Neck Neck exam: Present: normal inspection, tenderness, full ROM, lymphadenopathy (Bilateral anterior cervical lymphadenopathy) - Respiratory Respiratory exam: Present: normal lung sounds bilaterally. Absent: respiratory distress, wheezes, rales, rhonchi, chest wall tenderness, accessory muscle use, decreased breath sounds, prolonged expiratory - Cardiovascular Cardiovascular Exam: Present: regular rate, normal rhythm, normal heart sounds. Absent: systolic murmur, diastolic murmur, rubs, gallop - GI/Abdominal GI/Abdominal exam: Present: soft, normal bowel sounds. Absent: tenderness, guarding, rebound, hyperactive bowel sounds, hypoactive bowel sounds, organomegaly - Extremities Exam Extremities exam: Present: normal inspection, full ROM, normal capillary refill - Back Exam Back exam: Present: normal inspection, full ROM. Absent: tenderness, CVA tenderness (R), CVA tenderness (L), muscle spasm, paraspinal tenderness, vertebral tenderness - Neurological Exam Neurological exam: Present: alert, oriented X3, CN II-XII intact, normal gait, reflexes normal - Psychiatric Psychiatric exam: Present: normal affect, normal mood - Skin Skin exam: Present: warm, dry, intact, normal color. Absent: rash ED Course Vital Signs 10/27/20 01:53 Temperature 98.3 F Pulse Rate 80 Respiratory 20 Rate Blood Pressure 137/85 O2 Sat by Pulse 97 Oximetry ED Medical Decision Making - Medical Decision Making This is a 40-year-old -Iranian female with a history of asthma who presents to the ED with complaint of acute onset persistent sore throat with dysphagia, anterior cervical lymph node pain, neck pain and drooling for the last 2 days, worse in the last 12 hours. Patient states that she took Benadryl with no relief. In the ED, patient is alert and oriented x3 and is not in distress with normal vital signs. Patient was treated in the ED with steroids, pain medication given initial oral antibiotics. Patient was discharged home on medications including antibiotics, steroids and pain medications and was advised to follow-up with her primary care physician in 3 to 5 days for reevaluation or return to the ED immediately if symptoms get worse. - Differential Diagnosis Strep pharyngitis; Tonsillitis; Cervical lymphadenopathy; URI Critical care attestation.: If time is entered above; I have spent that time in minutes in the direct care of this critically ill patient, excluding procedure time. ED Disposition Clinical Impression: Acute bacterial pharyngitis, Acute bacterial tonsillitis, Cervical lymphadenopathy Disposition: DC-01 TO HOME OR SELFCARE Is pt being admited?: No Does the pt Need Aspirin: No Condition: Stable Instructions: Tonsillitis, [id number], Pharyngitis, [id number], Lymphadenopathy, Strep Throat, Adult, [id number] Additional Instructions: Take medication with food, drink plenty of fluids and follow-up with your primary care physician in 3 to 5 days for reevaluation. Return to the ED immediately if symptoms get worse. Prescriptions: diphenhydrAMINE [Benadryl CAP] 25 mg PO Q6HR PRN #30 capsule PRN Reason: Allergy Symptoms Clindamycin [Clindamycin CAP] 300 mg PO Q8HR #60 capsule Lidocaine Viscous 2% 10 ml PO Q6H PRN #120 ml PRN Reason: Sore Throat methylPREDNISolone [Medrol 4MG DOSEPAK (21 tabs)] 4 mg PO DAILY #21 tab.ds.pk Ketorolac [Toradol] 10 mg PO Q8H PRN #20 tablet PRN Reason: Pain Acetaminophen/Codeine [Tylenol /Codeine # 3 tab] 1 tab PO Q6H PRN #12 tab PRN Reason: Pain , Severe (7-10) Referrals: [facility] [Provider Group] - 3-5 Days Time of Disposition: 02:06 Print Language: BELARUSIAN
== END 2020-10-27 03:10 | disposition home or self-care (01) ==
LOC: ED 01:43
DX: J03.80 Acute tonsillitis due to other specified organisms (principal); B96.89 Other specified bacterial agents as the cause of diseases classified elsewhere; R59.1 Generalized enlarged lymph nodes; J45.909 Unspecified asthma, uncomplicated; Z87.891 Personal history of nicotine dependence; Z79.899 Other long term (current) drug therapy; Z88.2 Allergy status to sulfonamides; Z88.8 Allergy status to other drugs, medicaments and biological substances
CPT/HCPCS: 96372; 99282; J1100; J1885

== ENCOUNTER 2021-03-22 08:19 | Emergency (ER) | payer BC ==
[2021-03-22 08:32] VITALS: BP 132/95
--- NOTE | 2021-03-22 09:32 | Emergency Department Report ---
Eye Injury/Foreign Body - HPI Duration: 3 Days Eye Location: Left Severity: Moderate Tetanus Status: Up to Date Eye Symptoms: Eye Pain: Yes, Blurred Vision: No, Eye Redness: Yes, Grinding/Hammering Metal: No, Used Eye Protection: No, Contact Lens Use: No, Recalls Injury: No, Photophobia: Yes Other History: 40-year-old -Salv[place] female presents to the emergency room for left eye redness with drainage for a few days. Patient states she has had this in the past. She denies any change of vision no trauma to her eye does not wear contacts. Denies any fever or chills. ED Review of Systems ROS: Stated complaint: LT EYE RED/PAIN Other details as noted in HPI ED Past Medical Hx - Past Medical History Previous Medical History?: Yes Hx Asthma: Yes Additional medical history: Recurrent sinusitis, Allergies - Surgical History Additional Surgical History: back - Social History Smoking Status: Former Smoker Substance Use Type: None - Medications Home Medications: Home Medications Medication Instructions Recorded Confirmed Last Taken Type Acetaminophen [Acetaminophen TAB] 2 tab PO Q4H PRN #14 tablet 07/09/19 Unknown Rx Loratadine (Nf) [Claritin] 10 mg PO DAILY #30 tablet 07/09/19 Unknown Rx diphenhydrAMINE [Benadryl CAP] 50 mg PO Q6H PRN #15 capsule 07/09/19 Unknown Rx methylPREDNISolone [Medrol 4MG 1 dose PO DAILY #1 tab.ds.pk 07/09/19 Unknown Rx DOSEPAK (21 tabs)] Clindamycin [Clindamycin CAP] 300 mg PO Q8HR #60 capsule 07/21/20 Unknown Rx Ibuprofen [Motrin 800 MG tab] 800 mg PO Q8HR PRN #30 tablet 07/21/20 Unknown Rx Ondansetron [Zofran Odt] 4 mg PO Q6H PRN #15 tab.rapdis 07/21/20 Unknown Rx cephALEXin [Keflex] 500 mg PO Q8HR #30 cap 07/21/20 Unknown Rx traMADoL [Ultram] 50 mg PO Q6HR PRN #12 tablet 07/21/20 Unknown Rx Acetaminophen/Codeine [Tylenol 1 tab PO Q6H PRN #12 tab 10/27/20 Unknown Rx /Codeine # 3 tab] Clindamycin [Clindamycin CAP] 300 mg PO Q8HR #60 capsule 10/27/20 Unknown Rx Ketorolac [Toradol] 10 mg PO Q8H PRN #20 tablet 10/27/20 Unknown Rx Lidocaine Viscous 2% 10 ml PO Q6H PRN #120 ml 10/27/20 Unknown Rx diphenhydrAMINE [Benadryl CAP] 25 mg PO Q6HR PRN #30 capsule 10/27/20 Unknown Rx methylPREDNISolone [Medrol 4MG 4 mg PO DAILY #21 tab.ds.pk 10/27/20 Unknown Rx DOSEPAK (21 tabs)] Erythromycin [Erythromycin Ophth 1 applic OS QID 10 Days #1 tube 03/22/21 Unknown Rx Oint] Ketotifen Fumarate [Zaditor] 1 drop OS QDAY #1 bottle 03/22/21 Unknown Rx Eye Injury Exam - Exam General: Vital signs noted. No distress. Alert and acting appropriately. - Visual Acuity Left Vision Acuity Degree: 20/20 Eye Exam: Left Injection, Left EOMI, Left Mucous Discharge, Left Purulent Discharge, Neither Abnormal Pupil, Neither Eye Foreign Body, Neither Lid Foreign Body, Neither Photophobia Exam: Conjunctiva injected, sclera injected ED Course Vital Signs 03/22/21 08:31 Temperature 99 F Pulse Rate 77 Respiratory 16 Rate Blood Pressure 132/95 [Right] O2 Sat by Pulse 100 Oximetry ED Medical Decision Making - Medical Decision Making 40-year-old -[place] female presents to the emergency room for left eye redness with drainage for a few days. Patient states she has had this in the past. She denies any change of vision no trauma to her eye does not wear contacts. Denies any fever or chills. Patient will be discharged on erythromycin ophthalmic ointment and Zaditor eyedrops and to follow-up with an clutch specialist. Critical care attestation.: If time is entered above; I have spent that time in minutes in the direct care of this critically ill patient, excluding procedure time. ED Disposition Clinical Impression: Conjunctivitis Disposition: DC-01 TO HOME OR SELFCARE Is pt being admited?: No Does the pt Need Aspirin: No Condition: Stable Instructions: How to Use Eye Drops and Eye Ointments Additional Instructions: Take pain medication as needed. Complete antibiotics and use eyedrops as prescribed. Follow-up with clutch specialist. Prescriptions: Erythromycin [Erythromycin Ophth Oint] 1 applic OS QID 10 Days #1 tube Ketotifen Fumarate [Zaditor] 1 drop OS QDAY #1 bottle Referrals: [facility] [Primary Care Provider] - 3-5 Days DOROTA ARORA MD [Staff Physician] - 3-5 Days [facility] [employer] [facility], [facility] [Provider Group] - 3-5 Days [facility] [Provider Group] - 3-5 Days Forms: Work/School Release Form(ED)
== END 2021-03-22 09:36 | disposition home or self-care (01) ==
LOC: ED 08:19
DX: H10.9 Unspecified conjunctivitis (principal); J45.909 Unspecified asthma, uncomplicated; Z98.890 Other specified postprocedural states; Z87.891 Personal history of nicotine dependence; Z79.1 Long term (current) use of non-steroidal anti-inflammatories (NSAID); Z79.2 Long term (current) use of antibiotics; Z79.899 Other long term (current) drug therapy; Z88.2 Allergy status to sulfonamides; Z88.8 Allergy status to other drugs, medicaments and biological substances
CPT/HCPCS: 99282

== ENCOUNTER 2021-05-04 12:18 | Emergency (ER) | payer BC ==
--- NOTE | 2021-05-04 15:07 | Emergency Department Report ---
ED Eye Problem HPI - General Chief complaint: Eye Problems Stated complaint: PAIN IN BOTH EYES Time Seen by Provider: 05/04/21 14:55 Source: patient Mode of arrival: Ambulatory Limitations: No Limitations - History of Present Illness Initial comments: Chief complaint: "My eyes have been doing this since I was a kid." HPI: This is a 40-year-old female with history of seasonal allergies, asthma, sinusitis who presents with red itchy eyes since Monday. She has tried Benadryl and cold compresses with continued symptoms. She denies visual changes. Both eyes are affected. chief complaint: eye redness, other (Itchy eyes) -: days(s) (2 days) Onset Description: gradual If Injury: none Eye Symptoms: redness, itching Severity: moderate - Related Data Previous Rx's Medication Instructions Recorded Last Taken Type Acetaminophen [Acetaminophen TAB] 2 tab PO Q4H PRN #14 tablet 07/09/19 Unknown Rx Loratadine (Nf) [Claritin] 10 mg PO DAILY #30 tablet 07/09/19 Unknown Rx diphenhydrAMINE [Benadryl CAP] 50 mg PO Q6H PRN #15 capsule 07/09/19 Unknown Rx methylPREDNISolone [Medrol 4MG 1 dose PO DAILY #1 tab.ds.pk 07/09/19 Unknown Rx DOSEPAK (21 tabs)] Clindamycin [Clindamycin CAP] 300 mg PO Q8HR #60 capsule 07/21/20 Unknown Rx Ibuprofen [Motrin 800 MG tab] 800 mg PO Q8HR PRN #30 tablet 07/21/20 Unknown Rx Ondansetron [Zofran Odt] 4 mg PO Q6H PRN #15 tab.rapdis 07/21/20 Unknown Rx cephALEXin [Keflex] 500 mg PO Q8HR #30 cap 07/21/20 Unknown Rx traMADoL [Ultram] 50 mg PO Q6HR PRN #12 tablet 07/21/20 Unknown Rx Acetaminophen/Codeine [Tylenol 1 tab PO Q6H PRN #12 tab 10/27/20 Unknown Rx /Codeine # 3 tab] Clindamycin [Clindamycin CAP] 300 mg PO Q8HR #60 capsule 10/27/20 Unknown Rx Ketorolac [Toradol] 10 mg PO Q8H PRN #20 tablet 12/15/20 Unknown Rx Lidocaine Viscous 2% 10 ml PO Q6H PRN #120 ml 10/27/20 Unknown Rx diphenhydrAMINE [Benadryl CAP] 25 mg PO Q6HR PRN #30 capsule 10/27/20 Unknown Rx methylPREDNISolone [Medrol 4MG 4 mg PO DAILY #21 tab.ds.pk 10/27/20 Unknown Rx DOSEPAK (21 tabs)] Erythromycin [Erythromycin Ophth 1 applic OS QID 10 Days #1 tube 03/22/21 Unknown Rx Oint] Ketotifen Fumarate [Zaditor] 1 drop OS QDAY #1 bottle 03/22/21 Unknown Rx Cetirizine HCl 10 mg PO DAILY 14 Days #14 tablet 05/04/21 Unknown Rx Cetirizine HCl [Zerviate] 1 each OP BID 14 Days #1 droperette 05/04/21 Unknown Rx Allergies Allergy/AdvReac Type Severity Reaction Status Date / Time ibuprofen [From Motrin] Allergy Unknown Verified 07/08/19 05:30 Sulfa (Sulfonamide Allergy Hives Verified 09/11/14 13:24 Antibiotics) tramadol Allergy Itching Verified 11/26/14 12:55 ED Review of Systems ROS: Stated complaint: PAIN IN BOTH EYES Other details as noted in HPI Constitutional: denies: fever, malaise ENT: congestion Respiratory: denies: cough, shortness of breath Cardiovascular: denies: chest pain Gastrointestinal: denies: abdominal pain ED Past Medical Hx - Past Medical History Previous Medical History?: Yes Hx Asthma: Yes Additional medical history: Recurrent sinusitis, Allergies - Surgical History Past Surgical History?: Yes Additional Surgical History: back - Social History Smoking Status: Former Smoker Substance Use Type: None - Medications Home Medications: Home Medications Medication Instructions Recorded Confirmed Last Taken Type Acetaminophen [Acetaminophen TAB] 2 tab PO Q4H PRN #14 tablet 07/09/19 Unknown Rx Loratadine (Nf) [Claritin] 10 mg PO DAILY #30 tablet 07/09/19 Unknown Rx diphenhydrAMINE [Benadryl CAP] 50 mg PO Q6H PRN #15 capsule 07/09/19 Unknown Rx methylPREDNISolone [Medrol 4MG 1 dose PO DAILY #1 tab.ds.pk 07/09/19 Unknown Rx DOSEPAK (21 tabs)] Clindamycin [Clindamycin CAP] 300 mg PO Q8HR #60 capsule 07/21/20 Unknown Rx Ibuprofen [Motrin 800 MG tab] 800 mg PO Q8HR PRN #30 tablet 07/21/20 Unknown Rx Ondansetron [Zofran Odt] 4 mg PO Q6H PRN #15 tab.rapdis 07/21/20 Unknown Rx cephALEXin [Keflex] 500 mg PO Q8HR #30 cap 07/21/20 Unknown Rx traMADoL [Ultram] 50 mg PO Q6HR PRN #12 tablet 07/21/20 Unknown Rx Acetaminophen/Codeine [Tylenol 1 tab PO Q6H PRN #12 tab 10/27/20 Unknown Rx /Codeine # 3 tab] Clindamycin [Clindamycin CAP] 300 mg PO Q8HR #60 capsule 10/27/20 Unknown Rx Ketorolac [Toradol] 10 mg PO Q8H PRN #20 tablet 10/27/20 Unknown Rx Lidocaine Viscous 2% 10 ml PO Q6H PRN #120 ml 10/27/20 Unknown Rx diphenhydrAMINE [Benadryl CAP] 25 mg PO Q6HR PRN #30 capsule 10/27/20 Unknown Rx methylPREDNISolone [Medrol 4MG 4 mg PO DAILY #21 tab.ds.pk 10/27/20 Unknown Rx DOSEPAK (21 tabs)] Erythromycin [Erythromycin Ophth 1 applic OS QID 10 Days #1 tube 03/22/21 Unknown Rx Oint] Ketotifen Fumarate [Zaditor] 1 drop OS QDAY #1 bottle 03/22/21 Unknown Rx Cetirizine HCl 10 mg PO DAILY 14 Days #14 tablet 05/04/21 Unknown Rx Cetirizine HCl [Zerviate] 1 each OP BID 14 Days #1 droperette 05/04/21 Unknown Rx ED Physical Exam - General Limitations: No Limitations General appearance: alert, in no apparent distress - Head Head exam: Present: atraumatic, normocephalic - Eye Eye exam: Present: PERRL, conjunctival injection. Absent: periorbital swelling, periorbital tenderness - Expanded Eye Exam Expanded Pupils: Regular, Round: Bilateral, Reactive: Bilateral Sclera/Conjunctival: Injection: Bilateral ED Course Vital Signs 05/04/21 12:44 Temperature 99.5 F Pulse Rate 89 Respiratory 18 Rate Blood Pressure 151/95 [Right] O2 Sat by Pulse 99 Oximetry ED Medical Decision Making - Medical Decision Making Allergic conjunctivitis treatment with cetirizine ophthalmic solution oral Zyrtec referred to personal kitchen worker in [facility], Critical care attestation.: If time is entered above; I have spent that time in minutes in the direct care of this critically ill patient, excluding procedure time. ED Disposition Clinical Impression: Allergic conjunctivitis of both eyes Disposition: - TO HOME OR SELFCARE Is pt being admited?: No Does the pt Need Aspirin: No Instructions: Allergic Conjunctivitis, Adult, [id number] Prescriptions: Cetirizine HCl 10 mg PO DAILY 14 Days #14 tablet Cetirizine HCl [Zerviate] 1 each OP BID 14 Days #1 droperette Referrals: DRU THRAHSER MD [Staff Physician] - 3-5 Days YENY DUBON MD [Staff Physician] - 3-5 Days Forms: Work/School Release Form(ED)
[2021-05-04 15:31] VITALS: BP 148/95
== END 2021-05-04 15:31 | disposition home or self-care (01) ==
LOC: ED 12:18
DX: H10.9 Unspecified conjunctivitis (principal); J45.909 Unspecified asthma, uncomplicated; Z87.891 Personal history of nicotine dependence; Z88.2 Allergy status to sulfonamides; Z88.6 Allergy status to analgesic agent; Z88.8 Allergy status to other drugs, medicaments and biological substances; Z79.899 Other long term (current) drug therapy
CPT/HCPCS: 99282

== ENCOUNTER 2022-06-01 13:30 | Emergency (ER) | payer SELFPAY | END 2022-06-01 15:00 | disposition left against medical advice (07) | LOC: ED 13:30 | DX: T78.40XA Allergy, unspecified, initial encounter (principal); Z53.21 Procedure and treatment not carried out due to patient leaving prior to being seen by health care provider ==